=== PATIENT | female | born 1970 | race African-American/Black ===

== ENCOUNTER 2018-12-27 22:24 | Emergency (ER) | payer OTHER ==
[2018-12-27 22:42] VITALS: BP 154/79; PULSE 80; TEMP 99; BMI 31.6
--- NOTE | 2018-12-28 00:22 | PDOC ---
History of Present Illness - General Chief Complaint: Edema Stated Complaint: SWOLLEN LEFT LEG Time Seen by Provider: 12/28/18 00:22 - History of Present Illness Initial Comments: 48yo F presenting with acute on chronic L. knee pain. Patient had knee arthroscopy last May, Simvex injection on 11/12/18, and is scheduled to have a knee replacement on Monday. Woke up this morning with L. knee swelling and severe pain. She has been instructed to avoid motrin in anticipation for her upcoming procedure. Took extra-strength tylenol at 9:45pm with minimal relief of her pain. Denies any recent trauma or fall. No hemoptysis, no recent surgical history, no recent immobilization, no hormone use, no history of DVT or PE. Denies fevers, chills, chest pain, or shortness of breath. Orthopedist: Dr. Chaparro Past History - Past Medical History Allergies/Adverse Reactions: Allergies Allergy/AdvReac Type Severity Reaction Status Date / Time amoxicillin trihydrate Allergy Intermediate Rash Verified 12/27/18 22:42 [From Augmentin] potassium clavulanate Allergy Intermediate Rash Verified 12/27/18 22:42 [From Augmentin] Home Medications: Ambulatory Orders Albuterol Sulfate Inhaler - [Ventolin HFA Inhaler -] 1 - 2 inh IH QID PRN Fluticasone Propionate [Flovent Diskus] 100 mcg IH PRN PRN 02/01/12 Montelukast Na [Singulair -] 10 mg PO DAILY PRN 02/01/12 Nebivolol HCl [Bystolic] 10 mg PO DAILY 02/01/12 Arthrozene PO DAILY PRN 12/14/18 Atorvastatin Ca [Lipitor] 10 mg PO HS 12/14/18 Celecoxib [Celebrex] 200 mg PO DAILY 12/14/18 Ferrous Sulfate 325 mg PO DAILY 12/14/18 L.acidoph,Paracasei, B.lactis [Probiotic] 1 each PO DAILY 12/14/18 Multivitamin/Iron/Folic Acid [Centrum Adults Tablet] 1 each PO DAILY 12/14/18 Omeprazole 40 mg PO DAILY 12/14/18 Oxycodone HCl 5 mg PO PRN PRN #10 tablet MDD 4 tab 12/28/18 Pantoprazole Sodium [Protonix -] 40 mg PO DAILY PRN #30 tablet.ec 12/28/18 Anemia: No Asthma: Yes Cancer: No Cardiac Disorders: No CVA: No COPD: No CHF: No Dementia: No Diabetes: No GI Disorders: No Disorders: No HTN: Yes Hypercholesterolemia: No Liver Disease: No Seizures: No Thyroid Disease: No - Surgical History Orthopedic Surgery: Yes (RIGHT BUNIONETOMY) - Suicide/Smoking/Psychosocial Hx Smoking Status: No Smoking History: Never smoked Have you smoked in the past 12 months: No Number of Cigarettes Smoked Daily: 0 Information on smoking cessation initiated: No Hx Alcohol Use: No Drug/Substance Use Hx: No Substance Use Type: None Hx Substance Use Treatment: No Review of Systems - Review of Systems Comments:: Constitutional: no fever, no chills HEENT: no throat pain, no dysphagia Cardiovascular: no chest pain, no palpitations Respiratory: no cough, no shortness of breath Gastrointestinal: no abdominal pain, no nausea Genitourinary: no dysuria, no frequency Musculoskeletal: +L. knee pain, no back pain Skin: no rash, no itching Neurologic: no headache, no weakness *Physical Exam - Vital Signs Last Vital Signs Temp Pulse Resp BP Pulse Ox 99.0 F 80 16 154/79 100 12/27/18 22:40 12/27/18 22:40 12/27/18 22:40 12/27/18 22:40 12/27/18 22:40 - Physical Exam Comments: General: Awake, alert, and fully oriented, in no acute distress Head: No signs of trauma Eyes: EOMI, sclera anicteric ENT: Moist mucus membranes Neck: Normal ROM, supple Lungs: Lungs clear, Normal breath sounds Cardio: Regular rhythm, S1 and S2 present Abdomen: Soft, nontender Extremities: L. knee swollen with effusion and without erythema, limited range of motion due to pain; No calf tenderness bilaterally, Distal pulses present SKIN: Warm, Dry, normal turgor Neurologic: Cranial nerves II through XII grossly intact. Normal speech ED Treatment Course - LABORATORY CBC & Chemistry Diagram: 12/28/18 00:49 12/28/18 00:49 Medical Decision Making - Medical Decision Making 48yo F presenting with acute on chronic L. knee pain. DDX including but not limited to knee effusion, DVT, fracture, septic arthritis , gout, reactive arthritis Labs Xray of L. knee Duplex L. leg Oxycodone Patient reports GI upset with most pain medications. Will order protonix as well 12/28/18 00:52 Duplex L. Leg, via Imaging data collection specialist is negative for DVT Xray of L. knee with multiple osteophytes and arthritic changes CBC WBC 9.0 K/mm3 (4.0-10.0) 12/28/18 00:49 RBC 4.32 M/mm3 (3.60-5.2) 12/28/18 00:49 Hgb 12.9 GM/dL (10.7-15.3) 12/28/18 00:49 Hct 36.9 % (32.4-45.2) 12/28/18 00:49 MCV 85.4 fl (80-96) 12/28/18 00:49 MCH 29.9 pg (25.7-33.7) 12/28/18 00:49 MCHC 35.0 g/dl (32.0-36.0) 12/28/18 00:49 RDW 14.4 % (11.6-15.6) 12/28/18 00:49 Plt Count 208 K/MM3 (134-434) 12/28/18 00:49 MPV 9.9 fl (7.5-11.1) 12/28/18 00:49 Absolute Neuts (auto) 7.5 K/mm3 (1.5-8.0) 12/28/18 00:49 Neutrophils % 83.1 % (42.8-82.8) H 12/28/18 00:49 Lymphocytes % 9.2 % (8-40) 12/28/18 00:49 Monocytes % 7.1 % (3.8-10.2) 12/28/18 00:49 Eosinophils % 0.2 % (0-4.5) 12/28/18 00:49 Basophils % 0.4 % (0-2.0) 12/28/18 00:49 Nucleated RBC % 0 % (0-0) 12/28/18 00:49 ESR 13 mm/hr (0-30) 12/28/18 00:49 No anemia or leukocytosis Normal ESR CMP Sodium 143 mmol/L (136-145) 12/28/18 00:49 Potassium 3.6 mmol/L (3.5-5.1) 12/28/18 00:49 Chloride 109 mmol/L (98-107) H 12/28/18 00:49 Carbon Dioxide 27 mmol/L (21-32) 12/28/18 00:49 Anion Gap 7 MMOL/L (8-16) L 12/28/18 00:49 BUN 12.1 mg/dL (7-18) 12/28/18 00:49 Creatinine 0.8 mg/dL (0.55-1.3) 12/28/18 00:49 Est GFR (CKD-EPI)AfAm 99.63 12/28/18 00:49 Est GFR (CKD-EPI)NonAf 85.96 12/28/18 00:49 Random Glucose 137 mg/dL (74-106) H 12/28/18 00:49 Uric Acid 4.1 mg/dL (2.6-7.2) 12/28/18 00:49 Calcium 8.4 mg/dL (8.5-10.1) L 12/28/18 00:49 Total Bilirubin 0.8 mg/dL (0.2-1) 12/28/18 00:49 AST 13 U/L (15-37) L 12/28/18 00:49 ALT 20 U/L (13-61) 12/28/18 00:49 Alkaline Phosphatase 98 U/L (45-117) 12/28/18 00:49 C-Reactive Protein 3.7 MG/DL (0.00-0.3) H 12/28/18 00:49 Total Protein 7.2 g/dl (6.4-8.2) 12/28/18 00:49 Albumin 3.9 g/dl (3.4-5.0) 12/28/18 00:49 Electrolytes unremarkable Normal uric acid Elevated CRP Patient states her L. knee pain improved, now 01/19 Had extensive discussion with the patient regarding her knee effusion as the likely cause of her significant pain. Offered her arthrocentesis which she initially considered, however, patient opted to medically manage her knee pain. Oxycodone and protonix sent to pharmacy. Advised otc tylenol for pain as well. Patient will follow up with her orthopedist. *DC/Admit/Observation/Transfer Diagnosis at time of Disposition: Knee pain, left - Discharge Dispostion Disposition: HOME Condition at time of disposition: Stable - Prescriptions Prescriptions: Oxycodone HCl 5 mg PO PRN PRN #10 tablet MDD 4 tab PRN Reason: Pain Pantoprazole Sodium [Protonix -] 40 mg PO DAILY PRN #30 tablet.ec PRN Reason: Indigestion - Referrals Referrals: Gautam Chaparro MD [Staff Physician] - - Patient Instructions Printed Discharge Instructions: DI for Knee Pain, DI for Prescription Opioid Use Additional Instructions: You came into the ED for left knee pain. Ultrasound did not show a blood clot. Blood work was within normal limits. Prescription for pain medicine sent to your pharmacy. Take as instructed. You can also take [id number]-hyetlzk tylenol for pain. Follow the instructions on the medication bottle. Make sure you do not take too much tylenol. The maximum dose per day is 4000mg. Follow up with your orthopedist. Call and make an appointment as soon as possible to further evaluate your knee. Your workup is not complete until you do so. Immediate medical attention is required if you experience: any focal numbness or weakness, coldness in your limb, or any new or concerning symptoms. If you think you are having an emergency, call for emergency medical services or present to the emergency department right away. - Post Discharge Activity
[2018-12-28] MEDS ORDERED: oxyCODONE HCL 5 MG TABLET PO ONE (00:43)
[2018-12-28] MEDS ORDERED: PANTOPRAZOLE 40 MG TABLET (FP) PO ONE (00:43)
--- NOTE | 2018-12-28 00:56 | PDOC ---
Documentation entered by Melchor Khan SCRIBE, acting as scribe for Luz Elena Perez DO. Luz Elena Perez DO: This documentation has been prepared by the Bill phillips Joel, SCRIBE, under my direction and personally reviewed by me in its entirety. I confirm that the documentation accurately reflects all work, treatment, procedures, and medical decision making performed by me. Attending Attestation - Resident Resident Name: Ashlee LopezJudith - ED Attending Attestation I have performed the following: I have examined & evaluated the patient, The case was reviewed & discussed with the resident, I agree w/resident's findings & plan, Exceptions are as noted - HPI HPI: 12/28/18 00:47 The patient is a 48 year old female with a significant PMH of HTN and asthma who presents to the emergency department with LLE swelling and pain beginning at about 9am this morning. The patient states she has had difficulty moving her left leg and it is significantly more swollen than the right. She reports taking extra strength Tylenol at about 9:45am for the pain to minimal relief. She denies recent travel or sick contacts. She denies history of cancer. The patient notes she is scheduled for surgery on Monday and was advised against anti-inflammatory drugs. The patient denies chest pain, shortness of breath, headache and dizziness. Denies fever, chills, nausea, vomit, diarrhea and constipation. Denies dysuria, frequency, urgency and hematuria. Allergies: Augmentin Past surgical history: R bunionectomy. Social history: No reported cigarette, alcohol, or drug use. PCP: Dr. Castillo - Physicial Exam PE: 12/28/18 00:47 GENERAL: Awake, alert, and fully oriented, in no acute distress HEAD: No signs of trauma EYES: PERRLA, EOMI, sclera anicteric, conjunctiva clear ENT: Auricles normal inspection, hearing grossly normal, nares patent, oropharynx clear without exudates. Moist mucosa NECK: Normal ROM, supple, no lymphadenopathy, JVD, or masses LUNGS: Breath sounds equal, clear to auscultation bilaterally. No wheezes, and no crackles HEART: Regular rate and rhythm, normal S1 and S2, no murmurs, rubs or gallops ABDOMEN: Soft, nontender, normoactive bowel sounds. No guarding, no rebound. No masses EXTREMITIES: (+) Large left knee proximal effusion, warm to touch. Limited ROM 2 /2 effusion. No clubbing or cyanosis. No cords or erythema. Pedal pulses intact. NEUROLOGICAL: Cranial nerves II through XII grossly intact. Normal speech. SKIN: Warm, Dry, normal turgor, no rashes or lesions noted. - Medical Decision Making 12/28/18 00:50 I, Dr. Luz Elena Perez, DO, attest that this document has been prepared under my direction and personally reviewed by me in its entirety. I further attest, that it accurately reflects all work, treatment, procedures and medical decision -making performed by me. 12/28/18 00:50 a/p: 48yo female with L knee pain -scheduled for sx with dr. cee on monday for knee replacement -pt with swelling and worsening pain today -pt with large effusion to the L knee and limited rom secondary to the effusion -will send labs, xray, duplex ultrasound -may need arthrocentesis of the L knee for both diagnostic and therapeutic reasons -suspect arthritis causing reactive effusion -no nsaid secondary to sx monday -no fevers -mild warmth to the joint, but no erythema 12/28/18 02:03 no dvt xrays shows djd 12/28/18 02:03 labs pending, esr and crp no elevated wbc
[2018-12-28] MEDS ORDERED: oxyCODONE HCL 5 MG TABLET ONE (01:23)
[2018-12-28] MEDS ORDERED: PANTOPRAZOLE 40 MG TABLET (FP) ONE (01:23)
[2018-12-28 01:27] LABS: BASO % 0.4 % (0-2.0); EOS % 0.2 % (0-4.5); HEMATOCRIT 36.9 % (32.4-45.2); HEMOGLOBIN 12.9 GM/dL (10.7-15.3); LYMPH % 9.2 % (8-40); MCH 29.9 pg (25.7-33.7); MEAN CELL VOLUME 85.4 fl (80-96); MEAN PLT VOLUME 9.9 fl (7.5-11.1); MONO % 7.1 % (3.8-10.2); NEUT % 83.1 % (42.8-82.8); PLATELET COUNT 208 K/MM3 (134-434); RBC 4.32 M/mm3 (3.60-5.2); RDW 14.4 % (11.6-15.6)
[2018-12-28 01:55] LABS: ALBUMIN 3.9 g/dl (3.4-5.0); BILIRUBIN,TOTAL 0.8 mg/dL (0.2-1); BLOOD UREA NITROGEN 12.1 mg/dL (7-18); CALCIUM 8.4 mg/dL (8.5-10.1); CREATININE 0.8 mg/dL (0.55-1.3); POTASSIUM 3.6 mmol/L (3.5-5.1); TOT PROT 7.2 g/dl (6.4-8.2)
[2018-12-28 02:31] LABS: INR 1.21 (0.83-1.09); PROTHROMBIN TIME (PATIENT) 14.3 SEC (9.7-13.0)
== END 2018-12-28 04:45 | disposition home or self-care (01) ==
LOC: JER 22:24
DX: M25.462 Effusion, left knee (principal); I10 Essential (primary) hypertension; J45.909 Unspecified asthma, uncomplicated
CPT/HCPCS: 36415; 73562-TC-LT-FY; 80053; 84550; 85025; 85610; 85651; 85730; 86140; 93971-TC; 99282-25

== ENCOUNTER 2019-01-01 06:25 | Inpatient (IN) | payer OTHER ==
[2018-12-14 11:27] VITALS: BMI 31.3
[2019-01-01] MEDS ORDERED: CELECOXIB 200 MG CAPSULE PO ONE (06:27)
[2019-01-01] MEDS ORDERED: oxyCODONE HCL 10 MG SUSTAINED ACTING TABLET PO ONE (06:27)
[2019-01-01] MEDS ORDERED: GABAPENTIN 300 MG CAPSULE (FP) PO ONE (06:27)
[2019-01-01] MEDS ORDERED: CEFAZOLIN 2 GM/D5W 2 GM/50 ML ML IVPB ONE (06:27)
[2019-01-01] MEDS ORDERED: TRANEXAMIC ACID 1000 MG/10 ML VIAL IVPUSH ONE (06:27)
[2019-01-01] MEDS ORDERED: SODIUM CHLORIDE 0.9% P/F 10 ML VIAL IJ ONE ×2 (06:50→07:43)
[2019-01-01] MEDS ORDERED: BUPIVACAINE LIPOSOME/PF (EXPAREL) 266 MG/20 ML VIAL ONE (06:50)
[2019-01-01] MEDS ORDERED: MIDAZOLAM HCL 2 MG/2 ML SINGLE DOSE VIAL ONE ×2 (06:50→07:39)
[2019-01-01] MEDS ORDERED: VANCOMYCIN 1,000 MG VIAL (RESTRICTED TO ID ONLY) ONE (07:04)
[2019-01-01] MEDS ORDERED: ceFAZolin SODIUM 1 GM VIAL ONE (07:04)
--- NOTE | 2019-01-01 07:29 | HP ---
Satellite [facility] - Chief Complaint Chief Complaint: left knee pain - Past Medical History Allergies/Adverse Reactions: Allergies Allergy/AdvReac Type Severity Reaction Status Date / Time amoxicillin trihydrate Allergy Intermediate Rash Verified 12/27/18 22:42 [From Augmentin] potassium clavulanate Allergy Intermediate Rash Verified 12/27/18 22:42 [From Augmentin] ...LMP Comment: 3 YEARS AGO - Current Medications Current Medications: Home Medications Medication Instructions Recorded Albuterol Sulfate Inhaler - 1 - 2 inh IH QID PRN 02/01/12 [Ventolin HFA Inhaler -] Fluticasone Propionate [Flovent 100 mcg IH PRN PRN 02/01/12 Diskus] Montelukast Na [Singulair -] 10 mg PO DAILY PRN 02/01/12 Nebivolol HCl [Bystolic] 10 mg PO DAILY 02/01/12 Atorvastatin Ca [Lipitor] 10 mg PO HS 12/14/18 Celecoxib [Celebrex] 200 mg PO DAILY 12/14/18 Ferrous Sulfate 325 mg PO DAILY 12/14/18 L.acidoph,Paracasei, B.lactis 1 each PO DAILY 12/14/18 [Probiotic] Multivitamin/Iron/Folic Acid 1 each PO DAILY 12/14/18 [Centrum Adults Tablet] Oxycodone HCl 5 mg PO PRN PRN #10 tablet MDD 4 12/28/18 tab Pantoprazole Sodium [Protonix -] 40 mg PO DAILY PRN #30 tablet.ec 12/28/18 Satellite Physical Exam - Physical Examination Vital Signs: Vital Signs Period Temp Pulse Resp BP Sys/Wolf Pulse Ox Last 24 Hr 98.2 F 72 18 126/78 General Appearance: Well Nourished, Well Developed, Alert & Oriented x3 ENT: Clear Lung: Normal air movement Heart: Regular rate & rhythm Extremities: Other (left knee- + Swelling, + ttp ,decr rom , nvi, xrays show grade 4 tricompartmental djd) Neurological: Intact, Alert, Oriented Satellite Impression/Plan - Impression/Plan Impression: left knee djd Operative Procedure: left david tkr Date to be Performed: 01/01/19
[2019-01-01] MEDS ORDERED: ONDANSETRON 4 MG/2 ML VIAL IVPUSH PRN ×2 (07:30→08:36)
[2019-01-01] MEDS ORDERED: LACTATED RINGERS SOLUTION 1,000 ML IV SCH (07:30)
[2019-01-01] MEDS ORDERED: MAG HYDROX/AL HYDROX/SIMETH 30 ML UNIT-DOSE CUP PO PRN (07:30)
[2019-01-01] MEDS ORDERED: MAGNESIUM HYDROX 2400MG/30ML ORAL SUSPENSION 30 ML CUP PO PRN (07:30)
[2019-01-01] MEDS ORDERED: ALBUTEROL SO4 8 GM HFA INHALER IH PRN (07:31)
[2019-01-01] MEDS ORDERED: MONTELUKAST NA 10 MG TABLET PO PRN (07:31)
[2019-01-01] MEDS ORDERED: PROPOFOL 20 ML ONE ×4 (07:39→09:38)
[2019-01-01] MEDS ORDERED: LIDOCAINE HCL/PF 2% SDV 5ML VIAL ONE (07:41)
[2019-01-01] MEDS ORDERED: DEXAMETHASONE SOD PHOSPHATE 4 MG/1 ML VIAL ONE (07:41)
[2019-01-01] MEDS ORDERED: PHENYLEPHRINE HCL 10 MG/1 ML SINGLE DOSE VIAL ONE (07:43)
[2019-01-01] MEDS ORDERED: ePHEDrine SULFATE 50 MG/1 ML AMPULE ONE ×2 (07:45→07:46)
[2019-01-01] MEDS ORDERED: SUCCINYLCHOLINE CHLORIDE 200 MG/10 ML VIAL ONE (07:47)
[2019-01-01] MEDS ORDERED: BUPIVACAINE HCL/PF 0.5% (5MG/ML) 10 ML VIAL ONE (07:51)
[2019-01-01] MEDS ORDERED: PROMETHAZINE HCL 25 MG/1 ML VIAL IVPUSH PRN (08:36)
[2019-01-01] MEDS ORDERED: oxyCODONE HCL 5 MG TABLET PO PRN (08:36)
[2019-01-01] MEDS ORDERED: VANCOMYCIN 1,000 MG VIAL (RESTRICTED TO ID ONLY) IVPB ONE (09:36)
[2019-01-01] MEDS ORDERED: TRANEXAMIC ACID 1000 MG/10 ML VIAL ONE (09:50)
--- NOTE | 2019-01-01 10:08 | OP ---
Operative Note - Note: Operative Date: 01/01/19 (chanda) Pre-Operative Diagnosis: left knee djd Operation: left david tkr Post-Operative Diagnosis: Same as Pre-op Surgeon: Gautam Chaparro Collection Systems Technician: Jose C Valladares Anesthesiologist/PAID SEARCH MARKETING ANALYST: Dylan Nick Anesthesia: Spinal, Local Specimens Removed: bone fragments Estimated Blood Loss (mls): 150 Operative Report Dictated: Yes
[2019-01-01] MEDS: ACETAMINOPHEN 325 MG TABLET (FP) PO SCH ×3 (11:12→20:27)
[2019-01-01] MEDS ORDERED: ONDANSETRON 4 MG/2 ML VIAL ONE (11:22)
[2019-01-01] MEDS: CEFAZOLIN 2 GM/D5W 2 GM/50 ML ML IVPB SCH ×2 (16:05→23:40)
[2019-01-01] MEDS: oxyCODONE HCL 5 MG TABLET PO PRN ×3 (16:55→23:56)
[2019-01-01] MEDS: SENNOSIDES/DOCUSATE COMBO (SENNA PLUS) TABLET (UD) PO SCH (21:48)
[2019-01-01] MEDS: oxyCODONE HCL 10 MG SUSTAINED ACTING TABLET PO SCH (21:49)
[2019-01-01] MEDS: ATORVASTATIN CA 10 MG TABLET (FP) PO SCH (21:51)
[2019-01-01] MEDS ORDERED: MOMETASONE FUROATE 220 MCG/IH INHALER IH PRN (22:00)
[2019-01-02] MEDS: ACETAMINOPHEN 325 MG TABLET (FP) PO SCH ×4 (02:45→21:35)
[2019-01-02] MEDS: oxyCODONE HCL 5 MG TABLET PO PRN ×4 (06:17→18:18)
[2019-01-02 07:42] LABS: HEMATOCRIT 31.7 % (32.4-45.2); HEMOGLOBIN 11.4 GM/dl (10.7-15.3); MCH 32.1 pg (25.7-33.7); MCHC 35.9 g/dl (32.0-36.0); MEAN CELL VOLUME 89.4 fl (80-96); MEAN PLT VOLUME 9.7 fl (7.5-11.1); PLATELET COUNT 219 K/MM3 (134-434); RBC 3.55 M/mm3 (3.60-5.2); RDW 12.9 % (11.6-15.6); WHITE BLOOD COUNT 7.7 K/mm3 (4.0-10.8)
--- NOTE | 2019-01-02 07:44 | CONSULT ---
Consult - Past Medical History Cardio/Vascular: Yes: HTN, Hyperlipdemia Pulmonary: Yes: Asthma ...LMP Comment: 3 YEARS AGO - Alcohol/Substance Use Hx Alcohol Use: No - Smoking History Smoking history: Never smoked Have you smoked in the past 12 months: No Aproximately how many cigarettes per day: 0 Home Medications - Allergies Allergies/Adverse Reactions: Allergies Allergy/AdvReac Type Severity Reaction Status Date / Time amoxicillin trihydrate Allergy Intermediate Rash Verified 12/27/18 22:42 [From Augmentin] potassium clavulanate Allergy Intermediate Rash Verified 12/27/18 22:42 [From Augmentin] - Home Medications Home Medications: Ambulatory Orders Albuterol Sulfate Inhaler - [Ventolin HFA Inhaler -] 1 - 2 inh IH QID PRN Fluticasone Propionate [Flovent Diskus] 100 mcg IH PRN PRN 02/01/12 Montelukast Na [Singulair -] 10 mg PO DAILY PRN 02/01/12 Nebivolol HCl [Bystolic] 10 mg PO DAILY 02/01/12 Atorvastatin Ca [Lipitor] 10 mg PO HS 12/14/18 Celecoxib [Celebrex] 200 mg PO DAILY 12/14/18 Ferrous Sulfate 325 mg PO DAILY 12/14/18 L.acidoph,Paracasei, B.lactis [Probiotic] 1 each PO DAILY 12/14/18 Multivitamin/Iron/Folic Acid [Centrum Adults Tablet] 1 each PO DAILY 12/14/18 Pantoprazole Sodium [Protonix -] 40 mg PO DAILY PRN #30 tablet.ec 12/28/18 Aspirin [ASA -] 325 mg PO DAILY@0800 tablet 01/01/19 Oxycodone HCl 5 mg PO Q6H PRN #40 tablet MDD 6 01/01/19 Review of Systems - Review of Systems Cardiovascular: reports: No Symptoms Respiratory: reports: No Symptoms Gastrointestinal: reports: No Symptoms Musculoskeletal: reports: Joint Pain, Joint Swelling Physical Exam Vital Signs: Vital Signs Temperature 98.9 F 01/02/19 06:00 Pulse Rate 91 H 01/02/19 06:00 Respiratory Rate 01/02/19 06:00 Blood Pressure 134/77 01/02/19 06:00 O2 Sat by Pulse Oximetry (%) 100 01/02/19 06:46 Cardiovascular: Yes: Regular Rate and Rhythm Respiratory: Yes: Regular, CTA Bilaterally Gastrointestinal: Yes: Normal Bowel Sounds, Soft. No: Tenderness Problem List - Problems (1) Knee pain, left Assessment/Plan: Operative Date: 01/01/19 (chanda) Pre-Operative Diagnosis: left knee djd Operation: left david tkr Post-Operative Diagnosis: Same as Pre-op Surgeon: Gautam Chaparro Orthodontist Vice President: Jose C Valladares Code(s): M25.562 - PAIN IN LEFT KNEE (2) HTN (hypertension) Assessment/Plan: same meds Code(s): I10 - ESSENTIAL (PRIMARY) HYPERTENSION (3) HLD (hyperlipidemia) Assessment/Plan: lipitor Code(s): E78.5 - HYPERLIPIDEMIA, UNSPECIFIED (4) Asthma Code(s): J45.909 - UNSPECIFIED ASTHMA, UNCOMPLICATED
[2019-01-02] MEDS: ASPIRIN 325 MG TABLET PO SCH (08:00)
[2019-01-02] MEDS: CEFAZOLIN 2 GM/D5W 2 GM/50 ML ML IVPB SCH (08:10)
[2019-01-02] MEDS: oxyCODONE HCL 10 MG SUSTAINED ACTING TABLET PO SCH ×2 (09:34→21:35)
--- NOTE | 2019-01-02 09:37 | PN ---
Progress Note (short form) - Note Progress Note: Ortho Pt seen and examined s/p left david tkr pod #1 Selected Entries 01/02/19 06:00 Temperature 98.9 F Pulse Rate 91 H Respiratory 19 Rate Blood Pressure 134/77 Laboratory Tests 01/02/19 07:16 WBC 7.7 Hgb 11.4 Hct 31.7 L Plt Count 219 dressing c/d/i, calf soft, nt rom 0-40, nvi a/p PT dvt ppx pain control d/c home tomorrow if stable
[2019-01-02] MEDS: PANTOPRAZOLE 40 MG TABLET (FP) PO SCH (10:00)
[2019-01-02] MEDS: NEBIVOLOL 10 MG TABLET (FP) PO SCH (10:10)
[2019-01-02] MEDS: FERROUS SO4 325 MG TABLET (FP) PO SCH (10:34)
[2019-01-02] MEDS: SENNOSIDES/DOCUSATE COMBO (SENNA PLUS) TABLET (UD) PO SCH ×2 (10:35→21:35)
[2019-01-02] MEDS: MULTIVITAMINS (DAILY MVI) TABLET (FP) PO SCH (10:36)
--- NOTE | 2019-01-02 13:24 | PN ---
Progress Note (short form) - Note Progress Note: ANESTHESIA POSTOP 48 YO FEMALE POD#1 S/P L TOTAL KNEE, SPINAL, PNB Patient sitting in chair. Comfortable. Tolerating PO. Pain adequately controlled. Participating in PT. VSS, Afebrile Continue current care, encouraged IS and active participation in PT. No anesthetic complications
[2019-01-02] MEDS: ATORVASTATIN CA 10 MG TABLET (FP) PO SCH (21:35)
--- NOTE | 2019-01-02 21:35 | SPEC ---
DATE OF OPERATION: 01/01/2019 PREOPERATIVE DIAGNOSIS: Degenerative joint disease, left knee. POSTOPERATIVE DIAGNOSIS: Degenerative joint disease, left knee. PROCEDURE: Left total knee replacement with robotic-assisted navigation (Makoplasty). SURGICAL ATTENDING: Gautam Chaparro M.D. ROUTE SALES DELIVERY DRIVER: Tito Lakhani ANESTHESIA: Regional and spinal. CLOSURE: A cemented Triathlon knee system with a 2 femur, 3 tibia, 11 polyethylene, 32 patella, number 1 Vicryl fascia, 0 and 2-0 subcutaneous, 3-0 Monocryl subcuticular with skin glue for skin, 4-0 undyed Vicryl for pin sites. ESTIMATED BLOOD LOSS: Less than 100 mL. COMPLICATIONS: None. CONDITION: To recovery room in stable condition. DESCRIPTION OF OPERATIVE PROCEDURE: Patient was taken to the operating room on January 01, 2019. Regional and general anesthesia was administered by the anesthesiologist. IV Kefzol and TXA were administered by the anesthesiologist. Well-padded pneumatic tourniquet was placed on the proximal thigh. The left lower extremity was prepped and draped in the usual sterile fashion. The leg was exsanguinated with an Esmarch bandage, and tourniquet was inflated to 275 mmHg. A 12 to 15-cm longitudinal midline incision was incised while centered over the patella. The dissection was carried down to the level of the extensor mechanism with sufficient flaps made to adequately perform the procedure. A medial parapatellar arthrotomy was then performed. We made a cuff of tissue on the patella for later closure. The patella was inverted, the knee was flexed up. The fat pad was excised. The subperiosteal dissection was on the anteromedial proximal tibia around towards the direction of the MCL. The ACL and the PCL were transected and debrided. The meniscal remnants of the medial and lateral meniscus were debrided and removed. This allowed the knee to be able to "be brought forward." The checkpoints were malleted into the tibia and into the femur. Two threaded pins were drilled anteroposteriorly proximal to the knee through the previous incision, through the anterior cortex, then just engaging the posterior cortex. To these pins was assembled the femoral navigation array. One handbreadth below the tibial tubercle, 2 stab incisions were used to drill 2 threaded pins in parallel fashion into the tibia, again through the anterior cortex and just engaging the posterior cortex. To these pins was fastened the tibial arrays. The knee was then registered with the navigation device with center of rotation of the hip, medial and lateral malleoli, both checkpoints, and multiple points on both the femur and the tibia to ensure excellent registration. The navigation device was directed off the "top of the bubbles" on both the femur and the tibia. The navigation passed within less than 0.5 mm to plan. The knee was then thoroughly inspected to remove all osteophytes both medially, laterally, and on the femur and the tibia, and whatever osteophytes were available for dissection. The knee was then taken to extension and to flexion, and stressed in both varus and valgus to assess flexion gaps. The virtual position of the components on the navigation device were then manipulated to optimize the position and to ensure equal gaps in both flexion and extension, and both medially and laterally. The robot was then brought into the field and was registered. The cuts were then made both on the femur and on the tibia as to plan. All osteophytes posteriorly were then removed as well. The gaps were then measured again in flexion and extension to be equal in both flexion and extension and medial and laterally. The femoral notch was then made, as we were doing a posterior stabilizing component, with the appropriate sized box. Trial reduction of the femur achieved excellent [id number] fit. A tibial baseplate of appropriate polyethylene thickness was "floated in the knee." It was ensured to be in the excellent position by navigation devices and was pinned in place. The knee was taken through a range of motion, and found to have excellent stability throughout flexion and extension. The patella was calibrated for thickness and osteotomized down to the appropriate level. The appropriate lollipop was used to drill the lug holes in the patella and the trial button was applied. The knee was taken through a range of motion and found to have excellent tracking of the patella, and patella from full extension to full flexion. Trial components were removed, the keel was punched and drilled, and a sclerotic bone on the tibia was drilled to help with cement interdigitation. The knee was thoroughly irrigated with the pulse antibiotic plant culture manager. The real components were then cemented in using monitored arrangement cement techniques with antibiotic cement, and pressurization and extension. After the cement was hardened, the knee was thoroughly inspected to remove any extra cement. The real polyethylene component was then clipped into place. Range of motion, stability, and tracking were as described earlier. The checkpoints and the pins were removed. The knee was thoroughly irrigated with antibiotic irrigation. Vancomycin powder was placed into the knee for antibiotic prophylaxis. The medial parapatellar arthrotomy was then closed using number 1 Vicryl interrupted suture. After closure of the deep layer, the knee was taken through a range of motion, and found to have excellent stability of the patella with no dislocation and no undue tension on the repair. The subcutaneous was pulse antibiotic irrigated, and was then closed with 2-0 Vicryl, 3-0 Monocryl subcuticular with the skin glue for the skin. The distal tibial pin site was irrigated thoroughly as well and then closed with 4-0 undyed Vicryl. A sterile Aquacel dressing was applied, followed by a Hong dressing. Tourniquet was deflated. Total tourniquet time was approximately 75 minutes. No complications. Patient was awakened from anesthesia and transferred to recovery room in stable condition. Postoperative x-rays revealed excellent position of the components. Oleg [id number]
[2019-01-03] MEDS: ACETAMINOPHEN 325 MG TABLET (FP) PO SCH ×2 (02:30→08:55)
[2019-01-03] MEDS: oxyCODONE HCL 5 MG TABLET PO PRN (05:33)
[2019-01-03 06:50] VITALS: PULSE 83
[2019-01-03 07:45] LABS: HEMATOCRIT 32.5 % (32.4-45.2); HEMOGLOBIN 11.5 GM/dl (10.7-15.3); MCH 31.3 pg (25.7-33.7); MCHC 35.4 g/dl (32.0-36.0); MEAN CELL VOLUME 88.4 fl (80-96); MEAN PLT VOLUME 10.1 fl (7.5-11.1); PLATELET COUNT 263 K/MM3 (134-434); RBC 3.68 M/mm3 (3.60-5.2); WHITE BLOOD COUNT 8.7 K/mm3 (4.0-10.8)
--- NOTE | 2019-01-03 08:21 | DS ---
Physical Examination Vital Signs: Vital Signs Temperature 99.0 F 01/03/19 06:00 Pulse Rate 83 01/03/19 06:00 Respiratory Rate 19 01/03/19 06:00 Blood Pressure 107/64 01/03/19 06:00 O2 Sat by Pulse Oximetry (%) 98 01/03/19 06:00 Labs: CBC, BMP 01/03/19 07:33 Discharge Summary Reason For Visit: OSTEOARTHRITIS Current Active Problems Asthma (Acute) HLD (hyperlipidemia) (Acute) HTN (hypertension) (Acute) Procedures: Principal: left tkr Hospital Course: admitted for elective left david tkr, uneventful post-op, stable for d/c Condition: Good - Instructions Diet, Activity, Other Instructions: Post-op Instructions-Total Knee Replacement Call the office for a follow-up appointment in 1 week - [phone] Aspirin 325mg daily for 6 weeks. Pain medication was sent into your pharmacy. Apply Graduated Compression Stockings (TEDs) to both lower extremities- remove daily for hygiene ONLY Apply Sequential Compression Device (SCDs) to both Lower extremities remove for PT and hygiene ONLY Apply cold packs to affected area for 15 minutes every 2 hours. Physical Therapist will come to your home for the first 5 days. You will be set up with outpatient PT at your first post-operative visit. Patient may ambulate as tolerated-encourage self care (at least every 2-3 hours while awake) with walker or cane Maintain Aquacel (waterproof) dressing to operative wound (will be removed by surgeon at first office visit) Shower with Aquacel dressing in place-if Aquacel integrity compromised, remove and apply dry sterile dressing and notify Orthopedist. DO NOT SHOWER unless Orthopedists approves without Aquacel dressing CONTACT THE OFFICE FOR ANY CHANGE IN YOUR CONDITION (for example-fever greater than 102 degrees, excessive bleeding from operative site, purulent drainage, severe swelling or pain) GO TO THE EMERGENCY ROOM IF THERE IS A MEDICAL EMERGENCY Knee Precautions: * Keep a rolled towel under affected heel while in bed or chair (to keep knee in extension) * Keep affected leg elevated except during mealtimes * DO NOT PLACE PILLOW UNDER AFFECTED KNEE * If you have any questions, please do not hesitate to call the office - . Referrals: Gautam Chaparro MD [Staff Physician] - Disposition: VNS/HOME HEALTH CARE - Home Medications Comprehensive Discharge Medication List: Ambulatory Orders Albuterol Sulfate Inhaler - [Ventolin HFA Inhaler -] 1 - 2 inh IH QID PRN Fluticasone Propionate [Flovent Diskus] 100 mcg IH PRN PRN 02/01/12 Montelukast Na [Singulair -] 10 mg PO DAILY PRN 02/01/12 Nebivolol HCl [Bystolic] 10 mg PO DAILY 02/01/12 Atorvastatin Ca [Lipitor] 10 mg PO HS 12/14/18 Celecoxib [Celebrex] 200 mg PO DAILY 12/14/18 Ferrous Sulfate 325 mg PO DAILY 12/14/18 L.acidoph,Paracasei, B.lactis [Probiotic] 1 each PO DAILY 12/14/18 Multivitamin/Iron/Folic Acid [Centrum Adults Tablet] 1 each PO DAILY 12/14/18 Pantoprazole Sodium [Protonix -] 40 mg PO DAILY PRN #30 tablet.ec 12/28/18 Aspirin [ASA -] 325 mg PO DAILY@0800 tablet 01/01/19 Oxycodone HCl 5 mg PO Q6H PRN #40 tablet MDD 6 01/01/19
--- NOTE | 2019-01-03 08:21 | PN ---
Progress Note (short form) - Note Progress Note: Ortho Pt seen and examined s/p left david tkr pod #2 Selected Entries 01/03/19 06:00 Temperature 99.0 F Pulse Rate 83 Respiratory 19 Rate Blood Pressure 107/64 Laboratory Tests 01/03/19 07:33 WBC 8.7 Hgb 11.5 Hct 32.5 Plt Count 263 dressing c/d/i, calf soft, nt rom 0-40, nvi a/p PT dvt ppx pain control d/c home today f/u in 1 week
[2019-01-03 10:04] VITALS: BP 108/66; TEMP 98.7
[2019-01-03] MEDS: SENNOSIDES/DOCUSATE COMBO (SENNA PLUS) TABLET (UD) PO SCH ×2 (10:05→10:13)
[2019-01-03] MEDS: FERROUS SO4 325 MG TABLET (FP) PO SCH ×2 (10:05→10:13)
[2019-01-03] MEDS: NEBIVOLOL 10 MG TABLET (FP) PO SCH (10:06)
[2019-01-03] MEDS: MULTIVITAMINS (DAILY MVI) TABLET (FP) PO SCH ×2 (10:07→10:13)
[2019-01-03] MEDS: PANTOPRAZOLE 40 MG TABLET (FP) PO SCH ×2 (10:07→10:13)
[2019-01-03] MEDS: oxyCODONE HCL 10 MG SUSTAINED ACTING TABLET PO SCH ×2 (10:07→10:13)
[2019-01-03] MEDS: ASPIRIN 325 MG TABLET PO SCH (10:12)
--- NOTE | 2019-01-03 11:25 | PN ---
Progress Note, Physician - Current Medication List Current Medications: Active Medications Acetaminophen (Tylenol -) 650 mg PO Q6H [facility] Stop: 01/04/19 08:44 Last Admin: 01/03/19 02:30 Dose: Not Given Al Hydroxide/Mg Hydroxide (Mylanta Oral Suspension -) 30 ml PO Q4H PRN PRN Reason: DYSPEPSIA Albuterol Sulfate (Ventolin Hfa Inhaler -) 2 puff IH QID PRN PRN Reason: ASTHMA Aspirin (Asa -) 325 mg PO DAILY@0800 [facility] Last Admin: 01/03/19 10:12 Dose: 325 mg Atorvastatin Calcium (Lipitor -) 10 mg PO HS [facility] Last Admin: 01/02/19 21:35 Dose: 10 mg Ferrous Sulfate (Feosol -) 325 mg PO DAILY [facility] Last Admin: 01/03/19 10:13 Dose: 325 mg Magnesium Hydroxide (Milk Of Magnesia -) 30 ml PO PRN PRN PRN Reason: CONSTIPATION Mometasone Furoate (Asmanex 220mcg -) 1 puff IH HS PRN PRN Reason: ASTHMA Montelukast Sodium (Singulair -) 10 mg PO DAILY PRN PRN Reason: WHEEZING Multivitamins/Minerals/Vitamin C (Tab-A-Vit -) 1 tab PO DAILY [facility] Last Admin: 01/03/19 10:13 Dose: 1 tab Nebivolol (Bystolic -) 10 mg PO DAILY [facility] Last Admin: 01/03/19 10:06 Dose: Not Given Ondansetron HCl (Zofran Injection) 4 mg IVPUSH Q6H PRN PRN Reason: NAUSEA Oxycodone HCl (Roxicodone -) 5 mg PO Q3H PRN PRN Reason: PAIN LEVEL 1-5 Oxycodone HCl (Roxicodone -) 10 mg PO Q3H PRN PRN Reason: PAIN LEVEL 6-10 Last Admin: 01/03/19 05:33 Dose: 10 mg Oxycodone HCl (Oxycontin -) 10 mg PO BID [facility] Stop: 01/04/19 08:36 Last Admin: 01/03/19 10:13 Dose: 10 mg Pantoprazole Sodium (Protonix -) 40 mg PO DAILY [facility] Last Admin: 01/03/19 10:13 Dose: 40 mg Senna/Docusate Sodium (Pericolace -) 2 tablet PO BID [facility] Last Admin: 01/03/19 10:13 Dose: 2 tablet - Objective Vital Signs: Vital Signs Temperature 98.7 F 01/03/19 10:00 Pulse Rate 83 01/03/19 10:00 Respiratory Rate 01/03/19 10:00 Blood Pressure 108/66 01/03/19 10:00 O2 Sat by Pulse Oximetry (%) 98 01/03/19 08:25 Cardiovascular: Yes: Regular Rate and Rhythm Respiratory: Yes: Regular, CTA Bilaterally Gastrointestinal: Yes: Normal Bowel Sounds, Soft Musculoskeletal: Yes: Joint Stiffness, Joint Swelling Labs: CBC, BMP 01/03/19 07:33 Problem List - Problems (1) Knee pain, left Assessment/Plan: Operative Date: 01/01/19 (chanda) Pre-Operative Diagnosis: left knee djd Operation: left david tkr Post-Operative Diagnosis: Same as Pre-op Surgeon: Gautam Chaparro Afternoon Nanny: Jose C Valladares Code(s): M25.562 - PAIN IN LEFT KNEE (2) HTN (hypertension) Assessment/Plan: same meds Code(s): I10 - ESSENTIAL (PRIMARY) HYPERTENSION (3) HLD (hyperlipidemia) Assessment/Plan: lipitor Code(s): E78.5 - HYPERLIPIDEMIA, UNSPECIFIED (4) Asthma Assessment/Plan: stable Code(s): J45.909 - UNSPECIFIED ASTHMA, UNCOMPLICATED Assessment/Plan follow up with pmd
--- NOTE | 2019-01-07 12:47 | PATH ---
Surgical Pathology Report Patient Name: DILMA TENA Med. Rec. #: [id number] /Age/Gender: 1970 (Age: 48) / F Account: [id number] Location: [facility] MED-SURG Taken: 01/01/2019 Received: 01/01/2019 Reported: 01/07/2019 Physicians: Gautam Chaparro M.D. Specimen(s) Received LEFT KNEE BONES Clinical History Osteoarthritis left knee Final Diagnosis KNEE BONES, LEFT, TOTAL KNEE REPLACEMENT: DEGENERATIVE JOINT DISEASE. Electronically Signed Heidi Mendenhall M.D. Gross Description Received in formalin labeled "left knee bones," is an 11.0 x 10.0 x 2.3 cm aggregate of multiple portions of bone and soft tissue, consistent with knee bones. There are multiple areas of eburnation present, measuring up to 2.4 cm in greatest dimension. The remaining articular surfaces are camarena-yellow and focally granular. The underlying trabecular bone is yellow, hard and focally hemorrhagic. Shook Splicer sections are submitted in one cassette, following decalcification. /01/03/2019 [facility]01/03/2019
== END 2019-01-03 13:18 | disposition home health service (06) | DRG 470 ==
LOC: FM/S 06:25
PROVIDERS: ADMIT Orthopaedic Surgery; ATTEND Orthopaedic Surgery
PROC: 8E0YXCZ Robotic Assisted Procedure of Lower Extremity (ICD-10-PCS; 2019-01-01)
PROC: 0SRD0J9 Replacement of Left Knee Joint with Synthetic Substitute, Cemented, Open Approach (ICD-10-PCS; principal; 2019-01-01 08:34)
DX: M17.12 Unilateral primary osteoarthritis, left knee (principal); I10 Essential (primary) hypertension; E78.5 Hyperlipidemia, unspecified; J45.909 Unspecified asthma, uncomplicated
CPT/HCPCS: 36415; 73560-TC-LT-FY; 85027; 88304-TC; 88311-TC; 94760; 97116-GP; 97161-GP

== ENCOUNTER 2019-02-19 09:08 | Day surgery (SDC) | payer OTHER | END 2019-02-19 13:21 | disposition home or self-care (01) | LOC: FASU 09:08 ==

== ENCOUNTER 2019-12-03 09:36 | Day surgery (SDC) | payer OTHER ==
[2019-08-23 15:34] VITALS: BMI 33.5
[2019-12-03 10:59] VITALS: TEMP 98.5
[2019-12-03 11:42] VITALS: BP 113/67; PULSE 67
== END 2019-12-03 11:42 | disposition home or self-care (01) ==
LOC: JASU-ENDO 09:36
PROVIDERS: ATTEND Internal Medicine Gastroenterology
PROC: 0DBP8ZX Excision of Rectum, Via Natural or Artificial Opening Endoscopic, Diagnostic (ICD-10-PCS; 2019-12-03)
PROC: 0DBP8ZX Excision of Rectum, Via Natural or Artificial Opening Endoscopic, Diagnostic (ICD-10-PCS; principal; 2019-12-03 10:00)
DX: Z86.010 Personal history of colon polyps (principal); K57.30 Diverticulosis of large intestine without perforation or abscess without bleeding; K62.1 Rectal polyp; K64.8 Other hemorrhoids; K62.89 Other specified diseases of anus and rectum; Z88.0 Allergy status to penicillin; Z88.8 Allergy status to other drugs, medicaments and biological substances
CPT/HCPCS: 88305-TC

== ENCOUNTER 2019-12-17 09:29 | Day surgery (SDC) | payer OTHER ==
[2019-12-17 09:57] VITALS: BMI 32.9
[2019-12-17 10:59] VITALS: TEMP 97.8
[2019-12-17 11:42] VITALS: BP 138/76; PULSE 60
--- NOTE | 2019-12-20 15:34 | PATH ---
Surgical Pathology Report Patient Name: DILMA TENA [facility]. Rec. #: [id number] /Age/Gender: 1970 (Age: 49) / F Account: [id number] Location: U-ENDOSCOPY Taken: 12/17/2019 Received: 12/17/2019 Reported: 12/20/2019 Physicians: Calvin Kramer D.O. Specimen(s) Received A: DUODENUM B: ULCER DISTAL BODY OF STOMACH C: BODY AND ANGULARIS Clinical History GERD, dyspepsia Postoperative diagnosis: Gastric ulcer, gastritis Final Diagnosis A. DUODENAL, BIOPSY: DUODENAL MUCOSA WITH NO SIGNIFICANT PATHOLOGIC CHANGE. NO HISTOLOGIC EVIDENCE OF INTRAEPITHELIAL LYMPHOCYTOSIS. B. ULCER DISTAL BODY STOMACH, BIOPSY: GASTRIC MUCOSA SHOWING CHRONIC, FOCALLY ACUTE GASTRITIS WITH EDEMA IN THE STROMA. IMMUNOSTAIN FOR H. PYLORI IS POSITIVE. NEGATIVE FOR INTESTINAL METAPLASIA. C. BODY AND ANGULARIS, BIOPSY: GASTRIC MUCOSA WITH CHRONIC GASTRITIS AND INTESTINAL METAPLASIA. IMMUNOSTAIN FOR H. PYLORI IS NEGATIVE. NEGATIVE FOR DYSPLASIA. Comment: [facility] H. [facility] [place] ([id number]) and interpreted at [facility] Positive and negative controls (internal if applicable) show appropriate results. Electronically Signed Augie Astudillo M.D. Gross Description A. Received in formalin, labeled "biopsy duodenum" are 4 camarena, irregular portions of soft tissue ranging from 0.1-0.3 cm. in greatest dimension. The specimens are submitted in toto in one cassette. B. Received in formalin, labeled "biopsy ulcer distal body of stomach" are 6 camarena, irregular portions of soft tissue ranging from 0.2-0.4 cm. in greatest dimension. The specimens are submitted in toto in one cassette. C. Received in formalin, labeled "biopsy body and angularis" are 4 camarena, irregular portions of soft tissue ranging from 0.2-0.4 cm. in greatest dimension. The specimens are submitted in toto in one cassette. DL/12/17/2019 [place]12/17/2019
== END 2019-12-17 12:03 | disposition home or self-care (01) ==
LOC: JASU-ENDO 09:29
PROVIDERS: ATTEND Internal Medicine Gastroenterology
PROC: 0DB68ZX Excision of Stomach, Via Natural or Artificial Opening Endoscopic, Diagnostic (ICD-10-PCS; principal; 2019-12-17 10:00)
DX: K29.50 Unspecified chronic gastritis without bleeding (principal); B96.81 Helicobacter pylori [H. pylori] as the cause of diseases classified elsewhere; K25.9 Gastric ulcer, unspecified as acute or chronic, without hemorrhage or perforation; I10 Essential (primary) hypertension
CPT/HCPCS: 88305-TC

== ENCOUNTER 2022-03-15 02:02 | Emergency (ER) | payer OTHER ==
[2022-03-15 02:06] VITALS: BP 160/94; PULSE 85; RESP 17; TEMP 98.9; BMI 33.3
[2022-03-15] MEDS ORDERED: KETOROLAC TROMETHAMINE 30 MG/1 ML VIAL IM ONE (02:47)
[2022-03-15] MEDS ORDERED: LIDOCAINE 5% TOPICAL PATCH TP ONE (02:47)
[2022-03-15] MEDS ORDERED: ACETAMINOPHEN 500 MG TABLET (FP) PO ONE (02:47)
[2022-03-15] MEDS ORDERED: LIDOCAINE 5% TOPICAL PATCH ONE (02:56)
[2022-03-15] MEDS ORDERED: KETOROLAC TROMETHAMINE 30 MG/1 ML VIAL ONE (02:56)
[2022-03-15] MEDS ORDERED: ACETAMINOPHEN 500 MG TABLET (FP) ONE (02:57)
[2022-03-15] MEDS ORDERED: LIDOCAINE PATCH REMOVAL MC ONE (15:00)
== END 2022-03-15 03:42 | disposition home or self-care (01) ==
LOC: JER 02:02
PROC: 3E023GC Introduction of Other Therapeutic Substance into Muscle, Percutaneous Approach (ICD-10-PCS; principal; 2022-03-15)
DX: M54.2 Cervicalgia (principal); M62.838 Other muscle spasm
CPT/HCPCS: 99284-25

== ENCOUNTER 2022-03-16 12:00 | Emergency (ER) | payer OTHER ==
[2022-03-16 12:21] VITALS: BP 150/83; PULSE 76; RESP 20; TEMP 98.3; BMI 31.6
[2022-03-16] MEDS ORDERED: diazePAM 5 MG TABLET PO ONE (12:59)
[2022-03-16] MEDS ORDERED: KETOROLAC TROMETHAMINE 30 MG/1 ML VIAL IM ONE (12:59)
[2022-03-16] MEDS ORDERED: KETOROLAC TROMETHAMINE 30 MG/1 ML VIAL ONE (13:29)
[2022-03-16] MEDS ORDERED: diazePAM 5 MG TABLET ONE (13:29)
== END 2022-03-16 15:07 | disposition home or self-care (01) ==
LOC: JER 12:00 → JERFT 12:00
PROC: 3E0233Z Introduction of Anti-inflammatory into Muscle, Percutaneous Approach (ICD-10-PCS; principal; 2022-03-16)
DX: M54.12 Radiculopathy, cervical region (principal)
CPT/HCPCS: 70450-TC; 99284-25

== ENCOUNTER 2022-05-08 19:15 | Emergency (ER) | payer OTHER ==
[2022-05-08 20:20] VITALS: BP 115/64; PULSE 75; RESP 18; TEMP 97.9; BMI 31.3
== END 2022-05-09 00:40 | disposition home or self-care (01) ==
LOC: JER 19:15
DX: R19.7 Diarrhea, unspecified (principal)
CPT/HCPCS: 87045; 87046; 87324; 87449; 99283-25

== ENCOUNTER 2023-07-11 04:51 | Day surgery (SDC) | payer OTHER ==
[2023-07-05 14:15] VITALS: BMI 33.5
[2023-07-11 09:48] VITALS: TEMP 98
[2023-07-11 14:25] VITALS: BP 107/58; PULSE 82; RESP 16
== END 2023-07-11 12:45 | disposition home or self-care (01) ==
LOC: JASU-ENDO 04:51
PROVIDERS: ATTEND Internal Medicine Gastroenterology
PROC: 0DBL8ZX Excision of Transverse Colon, Via Natural or Artificial Opening Endoscopic, Diagnostic (ICD-10-PCS; 2023-07-11)
PROC: 0DBM8ZX Excision of Descending Colon, Via Natural or Artificial Opening Endoscopic, Diagnostic (ICD-10-PCS; 2023-07-11)
PROC: 0DBH8ZX Excision of Cecum, Via Natural or Artificial Opening Endoscopic, Diagnostic (ICD-10-PCS; 2023-07-11)
PROC: 0DBK8ZX Excision of Ascending Colon, Via Natural or Artificial Opening Endoscopic, Diagnostic (ICD-10-PCS; principal; 2023-07-11 10:30)
DX: K64.8 Other hemorrhoids (principal); I10 Essential (primary) hypertension
CPT/HCPCS: 88305-TC

== ENCOUNTER 2023-09-17 11:51 | Emergency (ER) | payer OTHER ==
[2023-09-17 11:57] VITALS: BP 127/68; PULSE 82; RESP 18; TEMP 97.5; BMI 33.6
[2023-09-17] MEDS ORDERED: KETOROLAC TROMETHAMINE 30 MG/1 ML VIAL ONE (14:17)
[2023-09-17] MEDS ORDERED: FAMOTIDINE 20 MG/50 ML IVPB 20 MG/50 ML MG IVPB ONE (14:17)
[2023-09-17 14:21] LABS: BASO % 0.6 % (0-2.0); EOS % 0.5 % (0-4.5); HEMATOCRIT 35.4 % (32.4-45.2); LYMPH % 14.5 % (8-40); MCH 27.5 pg (25.7-33.7); MEAN CELL VOLUME 80.7 fl (80-96); MONO % 9.9 % (3.8-10.2); NEUT % 74.5 % (42.8-82.8); PLATELET COUNT 202 10^3/uL (134-434); RBC 4.38 M/mm3 (3.60-5.2); RDW 15.3 % (11.6-15.6); WHITE BLOOD COUNT 6.3 K/mm3 (4.0-10.0)
[2023-09-17] MEDS: KETOROLAC TROMETHAMINE 30 MG/1 ML VIAL IVPUSH ONE (14:30)
[2023-09-17] MEDS: FAMOTIDINE 20 MG/50 ML IVPB 20 MG/50 ML MG IVPB ONE (14:31)
[2023-09-17] MEDS: SODIUM CHLORIDE 0.9% 500 ML INFUS.BAG IV ONE (14:31)
[2023-09-17 14:41] LABS: URINE APPEARANCE CLEAR; URINE BILIRUBIN NEGATIVE (NEGATIVE); URINE COLOR YELLOW; URINE GLUCOSE (UA) NEGATIVE (NEGATIVE); URINE KETONE NEGATIVE (NEGATIVE); URINE LEUK ESTERASE NEGATIVE (NEGATIVE); URINE NITRITE NEGATIVE (NEGATIVE); URINE PROTEIN NEGATIVE (NEGATIVE); URINE UROBILINOGEN 0.2 mg/dL (0.2-1.0)
[2023-09-17 14:46] LABS: POTASSIUM 3.6 mmol/L (3.5-5.1)
[2023-09-17 14:48] LABS: CALCIUM 8.3 mg/dL (8.5-10.1)
[2023-09-17 14:49] LABS: ALBUMIN 3.3 g/dl (3.4-5.0); BLOOD UREA NITROGEN 12.2 mg/dL (7-18)
[2023-09-17 14:52] LABS: CREATININE 0.8 mg/dL (0.55-1.3)
[2023-09-17 14:53] LABS: TOT PROT 6.8 g/dl (6.4-8.2)
[2023-09-17 14:54] LABS: BILIRUBIN,TOTAL 1.2 mg/dL (0.2-1)
== END 2023-09-17 16:07 | disposition home or self-care (01) ==
LOC: JER 11:51
PROC: 3E033GC Introduction of Other Therapeutic Substance into Peripheral Vein, Percutaneous Approach (ICD-10-PCS; principal; 2023-09-17)
PROC: 3E0333Z Introduction of Anti-inflammatory into Peripheral Vein, Percutaneous Approach (ICD-10-PCS; 2023-09-17)
DX: R10.84 Generalized abdominal pain (principal); R51.9 Headache, unspecified; R19.7 Diarrhea, unspecified
CPT/HCPCS: 36415; 74177-TC; 80053; 81003; 83690; 85025; 87077; 87086; 99285-25

== ENCOUNTER 2023-10-03 04:48 | Day surgery (SDC) | payer OTHER ==
[2023-09-27 13:01] VITALS: BMI 33.5
[2023-10-03 11:39] VITALS: TEMP 98
[2023-10-03 12:02] VITALS: BP 130/71; PULSE 70; RESP 16
== END 2023-10-03 12:21 | disposition home or self-care (01) ==
LOC: JASU-ENDO 04:48
PROVIDERS: ATTEND Internal Medicine Gastroenterology
PROC: 0DB78ZX Excision of Stomach, Pylorus, Via Natural or Artificial Opening Endoscopic, Diagnostic (ICD-10-PCS; 2023-10-03)
PROC: 0DB68ZX Excision of Stomach, Via Natural or Artificial Opening Endoscopic, Diagnostic (ICD-10-PCS; 2023-10-03)
PROC: 0DB98ZX Excision of Duodenum, Via Natural or Artificial Opening Endoscopic, Diagnostic (ICD-10-PCS; principal; 2023-10-03 11:30)
DX: K29.50 Unspecified chronic gastritis without bleeding (principal)
CPT/HCPCS: 88305-TC; 88342-TC

== ENCOUNTER 2024-06-08 10:42 | Emergency (ER) | payer OTHER ==
[2024-06-08 11:14] VITALS: BP 134/83; PULSE 83; RESP 20; TEMP 99.3; BMI 32.5
[2024-06-08] MEDS ORDERED: ALBUTEROL SO4 2.5/IPRATROPIUM 0.5 INH SOL 3 ML VIAL.NEB. NEB ONE (11:34)
[2024-06-08] MEDS: ALBUTEROL SO4 2.5/IPRATROPIUM 0.5 INH SOL 3 ML VIAL.NEB. NEB ONE (11:39)
== END 2024-06-08 12:51 | disposition home or self-care (01) ==
LOC: JERFT 10:42
PROC: 3E0F7GC Introduction of Other Therapeutic Substance into Respiratory Tract, Via Natural or Artificial Opening (ICD-10-PCS; principal; 2024-06-08)
DX: R07.89 Other chest pain (principal); J10.1 Influenza due to other identified influenza virus with other respiratory manifestations; R05.9 Cough, unspecified; R09.81 Nasal congestion; R53.81 Other malaise
CPT/HCPCS: 0241U-QW; 71046-TC-FY; 99284-25